=== PATIENT | male | born 1975 | race Caucasian/White ===

== ENCOUNTER 2023-12-31 14:56 | Emergency (ER) | payer MEDICAID, OTHER ==
--- NOTE | 2023-12-31 15:18 | ED Physician Documentation ---
PD HPI SKIN - Stated complaint Stated Complaint: RT SIDE FACE SWELLING/PX - Chief complaint Chief Complaint: General - History obtained from History obtained from: Patient - History of Present Illness Timing - onset: How many days ago (5) Timing - duration: Days (5) Timing - details: Gradual onset, Still present Location: Face (right mandible area with abscess increased over 5 days, with outpouring of pus earlier today. Still painful and red/warm.) PD PAST MEDICAL HISTORY - Past Medical History Past Medical History: No Cardiovascular: None Respiratory: None Neuro: None Endocrine/Autoimmune: None GI: None : None HEENT: None Psych: None Musculoskeletal: None Derm: None - Past Surgical History Past Surgical History: No - Present Medications Home Medications: Ambulatory Orders Medication Instructions Recorded Confirmed Doxycycline Hyclate 100 mg PO BID 8 Days #16 cap 12/31/23 HYDROcod/ACETAM 5/325 [[place] 5/325] 1 ea PO Q6H PRN #12 tablet 12/31/23 Naproxen 500 mg PO BID #20 tab 12/31/23 - Allergies Allergies/Adverse Reactions: Allergies Allergy/AdvReac Type Severity Reaction Status Date / Time No Known Drug Allergies Allergy Verified 12/31/23 15:02 - Social History Does the pt smoke?: Yes Smoking Status: Current every day smoker Does the pt drink ETOH?: No Does the pt have substance abuse?: No - Immunizations Immunizations are current?: Yes PD ED PE NORMAL - Vitals Vital signs reviewed: Yes - General General: Alert and oriented X 3, Well developed/nourished - HEENT HEENT: Other (right mandible area with swelling and tenderness, with warmth and redness of skin. bedside US no fluid collections at this time, but tissue edema/infection. ) - Neck Neck: Supple, no meningeal sign, No adenopathy Results - Vitals Vitals: Oxygen O2 Source Room air PD Medical Decision Making - ED course Complexity details: reviewed results (abscess that has drained, with still infection of tissue. ), considered differential (increased infection on face over 5 days. Did have some pus out earlier today, but remains painful, red, warm. Bedside US showed swelling of tissue and edema but no current fluid collection. ), d/w patient Departure - Departure Disposition: 01 Home, Self Care Clinical Impression: Facial abscess Condition: Stable Record reviewed to determine appropriate education?: Yes Prescriptions: Doxycycline Hyclate 100 mg PO BID 8 Days #16 cap Naproxen 500 mg PO BID #20 tab HYDROcod/ACETAM 5/325 [[place] 5/325] 1 ea PO Q6H PRN #12 tablet PRN Reason: Pain Comments: Warm moist towels to the area periodically to help promote drainage and good blood flow to the area. Doxycycline antibiotic twice daily for the next 7 to 8 days to get rid of the infection. Take regular anti-inflammatories. I prescribed naproxen twice daily with food for the next week or so. Add Tylenol/acetaminophen 560 and 50 mg 4 times daily for pain. Add hydrocodone/acetaminophen if needed for worse pain. I would anticipate needing this just in the short-term as the infection starts clearing over the next couple of days. I would anticipate improvement over the next 2 to 3 days and resolution by 3 to 5 days there will still be some firmness in swelling in the area. The indications of the infection improving or less tenderness, redness, swelling and drainage. I sent your prescriptions to [facility] in [place]. I am prescribing a short course of narcotic pain medication for you. These are potentially dangerous and addictive medications that should be used carefully. These medications may constipate you. Take an [id number] stool softener such as docusate twice daily with plenty of water while taking these medications. If you go 24 hours without a bowel movement, take [id number] MiraLAX, per package instructions. Do not drink or drive while taking these medications. If you received narcotic or sedating medications while in the emergency department do not drive for 24 hours. Store this medication in a safe, secure place and out of reach of children. It is a violation of federal law to give or sell this medication to another person or to use in a manner other than prescribed. The ED will not refill narcotic prescriptions, including prescriptions lost or stolen. You can dispose of unwanted medications at the [facility]'s office or at several pharmacies such as [facility]. Forms: PCP List Discharge Date/Time: 12/31/23 16:04
[2023-12-31] MEDS: DOXYCYCLINE 100 MG TABLET PO STA (15:53)
[2023-12-31] MEDS: IBUPROFEN 600 MG TABLET PO STA (15:53)
[2023-12-31] MEDS: HYDROcod/ACETAM 5/325 MG TABLET PO STA (15:54)
[2023-12-31 16:09] VITALS: BP 108/67; O2SAT 99
== END 2023-12-31 16:04 | disposition home or self-care (01) ==
LOC: ED 14:56
DX: L02.01 Cutaneous abscess of face (principal); F17.200 Nicotine dependence, unspecified, uncomplicated
CPT/HCPCS: 99283; A9270